=== PATIENT | female | born 1965 | race African-American/Black ===

== ENCOUNTER → 2018-09-15 | Emergency (ER) | payer MEDICAID ==
[2018-09-15] MEDS: LIDOCAINE 1% (MPF) 5 ML VIAL INJ (14:29)
[2018-09-15] MEDS: DIPHTH/TET/ACEL PERTUSS (ADULT) 0.5 ML VIAL IM* (14:34)
[2018-09-15] MEDS: IBUPROFEN 800 MG TAB PO (15:01)
== END | disposition home or self-care (01) ==
LOC: FTE 13:55
DX: S61.412A Laceration without foreign body of left hand, initial encounter (principal); W26.0XXA Contact with knife, initial encounter; Y92.9 Unspecified place or not applicable; Z21 Asymptomatic human immunodeficiency virus [HIV] infection status
CPT/HCPCS: 12001; 90471; 90715; 99283-25

== ENCOUNTER 2018-09-17 07:30 | Emergency (ER) | payer MEDICAID | END 2018-09-17 07:57 | disposition home or self-care (01) | LOC: FTE 07:30 | DX: Z48.00 Encounter for change or removal of nonsurgical wound dressing (principal) | CPT/HCPCS: 99281; Z7502 ==

== ENCOUNTER 2018-09-22 07:37 | Emergency (ER) | payer MEDICAID | END 2018-09-22 08:07 | disposition home or self-care (01) | LOC: FTE 07:37 | DX: Z48.02 Encounter for removal of sutures (principal) | CPT/HCPCS: 99281 ==